=== PATIENT | female | born 1975 | race Caucasian/White ===

== ENCOUNTER 2023-02-04 09:29 | Day surgery (SDC) | payer MEDICAID, SELFPAY ==
[2023-02-04 10:26] VITALS: BP 117/73; PULSE 79; RESP 16; TEMP 36.6; O2SAT 98; BMI 28.5
[2023-02-04] MEDS: SODIUM CHLORIDE 0.9 % (FLUSH) 10 ML SYRINGE IVF (10:36)
[2023-02-04] MEDS: LACTATED RINGERS 1000 ML 1,000 ML 75 ML IV (10:40)
--- NOTE | 2023-02-04 12:25 | SUR.PREOP ---
Pt canceled surgery related to ride issues. Pt was offered to local and agreed, but because anxious while waiting and deceded to cancel. pt advocate discussed options for taxi service and pt declined.
== END 2023-02-04 23:00 | disposition home or self-care (01) ==
LOC: OR 09:36
PROVIDERS: PCP Family Medicine; Visit Provider Surgery
PROC: (CPT 37609; principal; 2023-02-04 11:15)
DX: Z53.29 Procedure and treatment not carried out because of patient's decision for other reasons (principal)
CPT/HCPCS: 81025; 82962; J7120

== ENCOUNTER 2023-02-11 07:03 | Day surgery (SDC) | payer MEDICAID, SELFPAY ==
[2023-02-11] VITALS (10 sets, daily range): BP systolic 117–145; BP diastolic 71–80; PULSE 52–87; RESP 12–18; TEMP 36.2–36.6; O2SAT 97–100; BMI 28.5
[2023-02-11] MEDS: BUPIVACAINE 0.25% 30 ML INJECTION (08:47)
[2023-02-11] MEDS: LIDOCAINE 1% MDV 20 ML INJECTION (08:47)
--- NOTE | 2023-02-11 09:18 | PM.GSPRC ---
Operative Note Date of procedure: 02/11/23 Pre-op diagnosis: Giant cell arteritis Post-op diagnosis: Same Type of Procedure: Left temporal artery biopsy Indications: Patient is a 47-year-old female with clinical history and workup concerning for giant cell arteritis. She is being followed by Neurology, with recommendations for temporal artery biopsy. The left side is her symptomatic side, with no symptoms on the right. Risks and benefits of temporal artery excision were discussed at length with the patient. Risks included, but were not limited to: Bleeding, infection, risk of damage to surrounding structures and possible need for additional procedures. All questions concerns were addressed with patient agreeing to proceed. Procedure Description: After discussing the risks and benefits of the procedure, the patient signed informed consent.? The operative site was marked and the patient was brought to the operating room and placed on the operating table in supine position.? Care was taken to pad the patient's pressure points.?? The operative site was then prepped and draped in the usual sterile fashion.? A time-out was then performed. Attention was directed to the left side. The handheld Doppler was utilized to roxie out the course of the temporal artery. Local anesthetic was utilized to numb up the area. A 15 blade was used to make an approximate 5 cm incision. Cautery was then used to divide the subcutaneous tissue and assure hemostasis. The artery was visualized within the temporoparietal fascia, which was entered with sharp dissection. A proximal portion of the artery was dissected out and ligated with 3 0 Vicryl and a small clip. The dissection was then carried distally for approximately 2 cm and ligated. A small branching vessel was identified and the specimen. A small clip was applied to the proximal side to ensure hemostasis. The specimen was then carefully removed, trying to limit manipulation of the vessel itself, and passed off to the back table. Again hemostasis was assured and the incision closed with interrupted 3 0 Vicryl and running 4 Monocryl. Dermabond was applied and patient was transported to the recovery room. The patient tolerated the procedure well. Findings: Normal left temporal artery. Anesthesia: local Surgeon: Jenn Perez MD Estimated blood loss (mL): 1 Additional Specimen Information: 1. Left temporal artery Disposition: same day
== END 2023-02-11 09:42 | disposition home or self-care (01) ==
PROVIDERS: PCP Family Medicine; Visit Provider Surgery
PROC: (CPT 37609; principal; 2023-02-11 08:15)
DX: M31.6 Other giant cell arteritis (principal)
CPT/HCPCS: 37609; 88305; J3490